=== PATIENT | female | born 1950 | race Caucasian/White ===

== ENCOUNTER 2022-06-20 09:25 | Outpatient (CLI) | payer MEDICARE, BC, SELFPAY ==
--- NOTE | 2022-06-20 09:47 | ECG_ITS ---
Measurements Intervals [place] Rate: 61 P: 53 VA: 159 QRS: -42 QRSD: 128 T: -39 QT: 461 QTc: 465 Interpretive Statements SINUS RHYTHM LEFT AXIS DEVIATION POSSIBLE LEFT VENTRICULAR HYPERTROPHY LATERAL ST ABNORMALITY, CONSIDER ISCHEMIA CANNOT RULE OUT HIGH LATERAL MYOCARDIAL INFARCTION , PROBABLY OLD ABNORMAL ECG NO PREVIOUS ECG AVAILABLE FOR COMPARISON Electronically Signed On 06-20-2022 15:17:22 CDT by Christopher Esqueda M.D.
== END 2022-06-20 09:26 | disposition home or self-care (01) ==
PROVIDERS: PCP Internal Medicine; Visit Provider Neurological Surgery
DX: Z01.818 Encounter for other preprocedural examination (principal); R94.31 Abnormal electrocardiogram [ECG] [EKG]
CPT/HCPCS: 93005

== ENCOUNTER 2022-06-25 09:16 | Outpatient (CLI) | payer MEDICARE, BC, SELFPAY ==
[2022-06-25 10:19] LABS: Anion Gap 9 mmol/L (8-16); Blood Urea Nitrogen 12 mg/dL (7-17); Calcium 9.1 mg/dL (8.4-10.2); Carbon Dioxide 31 mmol/L (22-30); Chloride 100 mmol/L (98-107); Estimated Glomerular Filt Rate > 60; Glucose 105 mg/dL (65-110); Potassium 3.8 mmol/L (3.4-5.0); Sodium 140 mmol/L (137-145)
== END 2022-06-25 09:17 | disposition home or self-care (01) ==
LOC: ANHSURGERY 09:24
PROVIDERS: Anesthesiology; PCP Internal Medicine; Visit Provider Neurological Surgery
DX: G89.29 Other chronic pain (principal); M79.606 Pain in leg, unspecified; I10 Essential (primary) hypertension
CPT/HCPCS: 36415; 80048; 86850; 86900; 86901

== ENCOUNTER 2022-06-28 01:00 | Day surgery (SDC) | payer MEDICARE, BC, SELFPAY ==
--- NOTE | 2022-06-20 16:07 | PC.NURSE ---
Report to the Outpatient Waiting Room, entrance under the green pavilion located off [facility], at time _0900 on date _06/28/22 . OR Time: _1100 . Time changes happen often and if your time is changed the preop area will call you the afternoon before. - You and your visitor will be asked to self-screen and do not enter if you have any COVID symptoms. - Only one visitor and NO children visitors are allowed at this time. - The patient visitor is requested to leave or wait in car when not with patient due to restrictions. - A mask is required within the hospital. Patients may have clear liquids (water, carbonated beverages, clear teas, apple juice) until 3 hours prior to surgery with a maximum of 20 ounces. - No food from midnight until time of surgery - Infants may have breast milk until 4 hours before surgery, infant formula 6 hours prior to surgery. - Children will be allowed to drink immediately following surgery. If applicable, please bring a bottle or sippy cup to assist with drinking. Juice, water, soda, and popsicles are readily available. For infants on formula, please bring formula the day of surgery. Pacifiers are allowed. Take the following medications with a SIP of water the morning of surgery: GABAPENTIN,HYDRALAZINE,LEVOTHYROXINE,HYDRALAZINE,,METOPROLOL, Medications to discontinue per physician __RICARDO PT STATES WILL CALL DR SOLER. STATES DR SOLER JUST PRESCRIBED ELIQUIS TODAY Date to take last dose Please no make-up, nail danish, hairspray, perfume, deodorant, or body powder the day of surgery. No jewelry (including any body piercings) or valuables the day of surgery, leave them at home. Please take a shower or bath the night before, or the morning of, surgery with an antibacterial soap. Wear comfortable, loose fitting clothing. Children are encouraged to wear pajamas. - Jewelry must be removed prior to entering the operating room. Rings and piercings that are not removed may be cut off. - The hospital will not accept responsibility for valuables. - Please leave all valuables, including medications, at home the day of surgery. If you are going home after surgery, a licensed local company refrigerated truck driver must drive you home. - NO public transportation without another adult. - We recommend that an adult stay with you for 24 hours following discharge. - We also recommend that you do not drive, make important decision, drink alcoholic beverages, or take any drugs that were not prescribed by your health care provider for at least 24 hours after your discharge time. For Pediatric surgeries, we recommend two adults accompany the child home (only one inside the building at this time). Follow any additional instructions given to you from your surgeon. If you or anyone in your household have experienced Covid symptoms in the past week, please notify your surgeon or the nurse liaison at the phone number below for possible testing. Telephone instructions given to __PATIENT and asked if any additional questions and then verbalized understanding. Patient advised to call surgeon office or pre surgery nurse liaison [phone] if any additional questions.
[2022-06-20 16:19] VITALS: BMI 30.4
[2022-06-28] VITALS (12 sets, daily range): BP systolic 115–172; BP diastolic 57–95; PULSE 43–54; RESP 14–20; TEMP 36.4; O2SAT 94–99
--- NOTE | ~2022-06-28 | XR_ITS ---
EXAMINATION: XR fluoroscopy no charge DATE: 06/28/2022 12:55 INDICATION: Chronic back and leg pain. TECHNIQUE: A single intraoperative fluoroscopic view of the thoracolumbar spine was obtained. I was n ot present. Fluoroscopy exposure time was 2 seconds. COMPARISON: None. FINDINGS: There are changes of posterior fusion procedure in the spine. Electrodes overlie the spine. IMPRESSION: 1. Surgical changes of the spine. Reviewed, dictated and finalized at location A.
[2022-06-28] MEDS: LACTATED RINGERS 1,000 ML 30 ML IV CONT ×2 (09:10→14:27)
--- NOTE | 2022-06-28 10:17 | WPDANESEPPF ---
Anes - Initial Pre Proc Eval Procedure: Operation Date: 06/28/22 11:00 Proposed Procedures p Removal of Dorsal Column Stimulator Lead and Generator - Job Carl MD Date/Time: 06/28/22 10:17 Surgeon: Job Carl MD Pre Op Diagnosis: chronic back & leg pain Patient Data Age: 72 Gender: F Height: 1.55 m Weight: 72.7 kg Last Vital Signs Temp 36.4 C L 06/28/22 08:56 Pulse 50 L 06/28/22 08:56 Resp 18 06/28/22 08:56 BP 166/84 H 06/28/22 08:56 Pulse Ox 97 06/28/22 08:56 O2 Del Method Room Air 06/28/22 08:56 Allergies Allergy/AdvReac Type Severity Reaction Status Date / Time milk Allergy Mild Anaphylaxis Verified 06/28/22 09:31 Sulfa (Sulfonamide Allergy Mild Rash Verified 06/28/22 09:31 Antibiotics) eggs Allergy Mild Rash Uncoded 06/28/22 09:31 Home Medications Medication Instructions Recorded Confirmed Type acetaminophen 500 mg tablet 500 mg PO Q6H PRN Pain 06/11/22 06/28/22 History (Tylenol Extra Strength) albuterol 90 mcg/actuation aerosol 1 mcg inhalation PRN PRN Shortness 06/11/22 06/28/22 History inhaler Of Breath amitriptyline 50 mg tablet 50 mg PO QHS 06/11/22 06/28/22 History atorvastatin 20 mg tablet 20 mg PO DAILY 06/11/22 06/28/22 History citalopram 20 mg tablet 20 mg PO DAILY 06/11/22 06/28/22 History clobetasol 0.05 % topical cream 1 applic topical DAILY 06/11/22 06/28/22 History diclofenac sodium 1 % topical gel 2 g topical QID 06/11/22 06/28/22 History furosemide 20 mg tablet 10 mg PO QAM 06/11/22 06/28/22 History gabapentin 800 mg tablet 800 mg PO DAILY 06/11/22 06/28/22 History hydralazine 25 mg tablet 25 mg PO TID 06/11/22 06/28/22 History levothyroxine 50 mcg capsule 50 mcg PO DAILY 06/11/22 06/28/22 History nabumetone 500 mg tablet 500 mg PO BID 06/11/22 06/28/22 History nitroglycerin 0.4 mg sublingual 0.4 mg sublingual Q5M PRN Pain 06/11/22 06/28/22 History tablet pantoprazole 20 mg tablet,delayed 20 mg PO QAM 06/11/22 06/28/22 History release sennosides 8.6 mg tablet 8.6 mg PO DAILY 06/11/22 06/28/22 History tapentadol 50 mg tablet (Nucynta) 50 mg PO BID PRN Pain 06/11/22 06/28/22 History tramadol 50 mg tablet 50 mg PO Q6H PRN Pain 06/11/22 06/28/22 History apixaban 5 mg tablet (Eliquis) 5 mg PO BID 06/20/22 06/28/22 History metoprolol tartrate 25 mg tablet 25 mg PO BID 06/20/22 06/28/22 History Patient hx anesthesia problems: none Family hx anesthesia problems: none Results Review: All pre-operative results and documents have been reviewed as part of the pre-operative evaluation. [facility] Past Medical History Medical History Afib Depression GERD (gastroesophageal reflux disease) Heart disease High cholesterol Spinal cord stimulator status Thyroid disease Surgical History Surgical History H/O cardiac radiofrequency ablation H/O neck surgery H/O spinal fusion H/O Spinal surgery History of carpal tunnel surgery Family History Family History Other Asthma Diabetes mellitus Heart disease Hypertension Social History Social History Smoking packs per day: 0.5 Smoking cigarettes per day: 10.0 Years smoked: 40 Smoking pack-years: 20.00 Smoking status: Current every day smoker Tobacco type: cigarettes Additional smoking assessment comments: STATES HAS SMOKED FOR 40 YRS ON AND OFF Alcohol intake: current Substance use: never Substance use type: does not use Living arrangements: alone Spiritual care concerns: No Anes - Eval Final PreProcedure Day of Procedure 06/28/22 10:17 Patient weight: obese Heart: regular rate and rhythm Lungs: decreased breath sounds Airway: Mallampati scale class III Neurological: alert and oriented Last oral intake: >/= 8 hours ASA clas
--- NOTE | 2022-06-28 11:11 | PM.IMHP ---
H&P: HPI History of Present Illness Date/Time: 06/28/22 11:11 Chief Complaint: Back and leg pain Narrative: Ms. Dunbar presents today for removal of her dorsal column stimulator lead and generator. It is no longer functioning for her needs to be removed. She is not having new bowel or bladder other constitutional problems. She does not have specific muscle group weakness or dermatomal numbness. Review of Systems Review of Systems: Patient denies shortness of breath, cough, fever, chills, nausea, vomiting, weight loss, weight gain, chest pain, dysuria. She has back and leg pain as above. Her review of systems is otherwise negative on 12 systems except as PMFSH Past Medical History Medical History Afib Depression GERD (gastroesophageal reflux disease) Heart disease High cholesterol Spinal cord stimulator status Thyroid disease Surgical History Surgical History H/O cardiac radiofrequency ablation H/O neck surgery H/O spinal fusion H/O Spinal surgery History of carpal tunnel surgery Family History Family History Other Asthma Diabetes mellitus Heart disease Hypertension Social History Social History Smoking packs per day: 0.5 Smoking cigarettes per day: 10.0 Years smoked: 40 Smoking pack-years: 20.00 Smoking status: Current every day smoker Tobacco type: cigarettes Additional smoking assessment comments: STATES HAS SMOKED FOR 40 YRS ON AND OFF Alcohol intake: current Substance use: never Substance use type: does not use Living arrangements: alone Spiritual care concerns: No Meds Home Medications and Allergies Home Medications Medication Instructions Recorded Confirmed Type acetaminophen 500 mg tablet 500 mg PO Q6H PRN Pain 06/11/22 06/28/22 History (Tylenol Extra Strength) albuterol 90 mcg/actuation aerosol 1 mcg inhalation PRN PRN Shortness 06/11/22 06/28/22 History inhaler Of Breath amitriptyline 50 mg tablet 50 mg PO QHS 06/11/22 06/28/22 History atorvastatin 20 mg tablet 20 mg PO DAILY 06/11/22 06/28/22 History citalopram 20 mg tablet 20 mg PO DAILY 06/11/22 06/28/22 History clobetasol 0.05 % topical cream 1 applic topical DAILY 06/11/22 06/28/22 History diclofenac sodium 1 % topical gel 2 g topical QID 06/11/22 06/28/22 History furosemide 20 mg tablet 10 mg PO QAM 06/11/22 06/28/22 History gabapentin 800 mg tablet 800 mg PO DAILY 06/11/22 06/28/22 History hydralazine 25 mg tablet 25 mg PO TID 06/11/22 06/28/22 History levothyroxine 50 mcg capsule 50 mcg PO DAILY 06/11/22 06/28/22 History nabumetone 500 mg tablet 500 mg PO BID 06/11/22 06/28/22 History nitroglycerin 0.4 mg sublingual 0.4 mg sublingual Q5M PRN Pain 06/11/22 06/28/22 History tablet pantoprazole 20 mg tablet,delayed 20 mg PO QAM 06/11/22 06/28/22 History release sennosides 8.6 mg tablet 8.6 mg PO DAILY 06/11/22 06/28/22 History tapentadol 50 mg tablet (Nucynta) 50 mg PO BID PRN Pain 06/11/22 06/28/22 History tramadol 50 mg tablet 50 mg PO Q6H PRN Pain 06/11/22 06/28/22 History apixaban 5 mg tablet (Eliquis) 5 mg PO BID 06/20/22 06/28/22 History metoprolol tartrate 25 mg tablet 25 mg PO BID 06/20/22 06/28/22 History Allergies Allergy/AdvReac Type Severity Reaction Status Date / Time milk Allergy Mild Anaphylaxis Verified 06/28/22 09:31 Sulfa (Sulfonamide Allergy Mild Rash Verified 06/28/22 09:31 Antibiotics) eggs Allergy Mild Rash Uncoded 06/28/22 09:31 Vital Signs Vital Signs - 24 hr 06/28/22 08:56 Temperature 97.5 F L Pulse Rate 50 L Respiratory Rate 18 Blood Pressure 166/84 H Pulse Oximetry 97 Oxygen Delivery Room Air Exam Neuro: Other: Patient is a normal appearing, normally developed female supine on the hospital bed in no acute dis
--- NOTE | 2022-06-28 11:14 | WPDHPUPDATE1 ---
History and Physical Update Update Date/Time: 06/28/22 11:14 History and Physical has been reviewed, including an updated exam of the patient. There are NO changes in the patient's condition. Risks, benefits, and alternatives have been discussed and questions answered. Patient agrees to proceed with procedure.
[2022-06-28] MEDS: ceFAZolin 2 GM/D5W 50 ML 2 GM/50 ML BAG IVPB (11:48)
[2022-06-28] MEDS: KETOROLAC 30 MG/ML VIAL (*BKC) IV PUSH (12:18)
[2022-06-28] MEDS: BUPIVACAINE/EPINEPHRINE 0.25% 50 ML VIAL INFILTRATE (12:29)
--- NOTE | 2022-06-28 12:31 | P.OP_ITS ---
Procedure Note - Detailed Date of Procedure 06/28/22 Pre-op Diagnosis chronic back & leg pain Post-op Diagnosis Same Procedure Performed Removal of dorsal column stimulator lead and generator Surgeon Job Carl MD Guitar [employer] Ms. Dunbar is a 72-year-old female who requires removal of her dorsal column stimulator and presents for that. Description of Procedure Patient was brought to the operating room in the supine position, was sedated, intubated and placed under general anesthesia in routine fashion. She was then turned into the prone position on a on a Fran frame. The area of operation on her back was examined, marked for incision, prepped and draped in routine sterile fashion. Incision was marked longitudinally in the thoracic spine over the previous incision and in the left flank transversely over the previous incision. These areas were injected with 0.5% lidocaine with [id number] epinephrine. Intravenous antibiotics given prior to incision. Incisions were made with a 10 blade scalpel. Bovie cautery was used to come through the soft tissue and discovered and removed the generator. Wires were freed from the soft tissue and then cut. At the thoracic incision the wires were discovered using Bovie cautery and pulled through. These were then followed to the epidural space using Bovie cautery. A subperiosteal dissection of the muscle soft tissue away from the spinous process and lamina above was performed with a subperiosteal elevator and Bovie cautery. The wires were then followed to the epidural space until the shoulders of the lead were discovered. Was then removed from the epidural space. The wounds were then copiously irrigated with bacitracin irrigation all bleeding stopped with bipolar and Bovie cautery. The wound was then closed in layered fashion with 2-0 Vicryl interrupted sutures in the thoracic fascia and Brisa's layer. Both incisions were closed with 3-0 Vicryl buried interrupted sutures in the dermis and a running 4-0 Monocryl subcuticular stitch in the skin were dressed with Dermabond and Telfa and Tegaderm dressing. The patient was allowed to wake up in the operating room and was taken to the recovery room in stable condition. There were no immediate complications of this operation. All counts were reported correct in the case. Blood loss was 5 cc. The patient was neurologically at her baseline postoperatively. Estimated Blood Loss 5 IV Fluids 1,000 Complications None Condition Stable Disposition PACU
--- NOTE | 2022-06-28 12:45 | ECG_ITS ---
Measurements Intervals [place] Rate: 53 P: 44 MO: 166 QRS: -39 QRSD: 146 T: 0 QT: 518 QTc: 488 Interpretive Statements SINUS BRADYCARDIA MARKED LEFT AXIS DEVIATION [QRS AXIS < -30] POSSIBLE LATERAL MYOCARDIAL INFARCTION , OF INDETERMINATE AGE [30 ms Q WAVE IN I/aVL/V5/V6] COMPARED TO ECG 06/20/2022 10:11:14 SINUS BRADYCARDIA NOW PRESENT Electronically Signed On 06-28-2022 15:50:38 CDT by Evan Hyman M.D.
--- NOTE | 2022-06-28 13:22 | SUR.PHASEI ---
1322 - dr. bosch at bedside, dr. bosch speaking with Mary Ozuna via phone in regards to pt's ekg issues in OR
--- NOTE | 2022-06-28 14:13 | WPDANESPN ---
Anes - Prog Note Post-Op Date/Time: 06/28/22 14:13 Cardiovascular status: normal Respiratory status: normal Airway patency: baseline Mental status: baseline Post-Op hydration status: normal Vital Signs: Last Vital Signs Temp 36.4 C 06/28/22 12:58 Pulse 43 L 06/28/22 14:10 Resp 14 06/28/22 14:10 BP 120/90 06/28/22 14:10 Pulse Ox 97 06/28/22 14:10 O2 Del Method Nasal Cannula 06/28/22 14:10 O2 Flow Rate 2 06/28/22 14:10 Pain Score (VAS): 0 I/O: Intake & Output 06/27/22 06/28/22 06/28/22 23:59 07:59 15:59 Intake Total 1000 Balance 1000 Patient Feedback: Patient satisfied with anesthetic care. Other Findings: Pt had prolonged bradycardia intra-op with HR in the 30s. Her bradycardia was refractory to atropine and ephedrine. A tracing was unable to be obtained. Visual inspection of the EKG intra-op did not reveal P waves. Pts HR responded appropriately to small doses of epinephrine to HR in the 50s with Pwaves identified. Post op EKG showed SB. VS have been stable as above. Pt says that she was on a monitor until this morning and has had these episodes in the past. She sees Dr. Mistry in [place]. I attempted to contact Dr. Mistry but his multimedia assistant stated that he was very busy in clinic and requested that I send a note and the EKG. A copy of this note will be faxed with the EKG. Pt has been instructed to place the radiographer cardiac catheterization back on and follow-up with Dr. Mistry. Dr. Carl informed of the plan.
[2022-06-28] MEDS: fentaNYL CITRATE INJ (*CRX) 100 MCG/2 ML VIAL 25 MCG IV PUSH ×2 (14:26→14:34)
== END 2022-06-28 16:02 | disposition home or self-care (01) ==
PROVIDERS: PCP Internal Medicine; Visit Provider Neurological Surgery
PROC: (CPT 63662; principal; 2022-06-28 11:00)
DX: Z45.42 Encounter for adjustment and management of neurostimulator (principal); M54.9 Dorsalgia, unspecified; M79.606 Pain in leg, unspecified; G89.29 Other chronic pain; I48.91 Unspecified atrial fibrillation; I51.9 Heart disease, unspecified; E78.00 Pure hypercholesterolemia, unspecified; E07.9 Disorder of thyroid, unspecified; K21.9 Gastro-esophageal reflux disease without esophagitis; F32.A Depression, unspecified; Z98.1 Arthrodesis status; F17.210 Nicotine dependence, cigarettes, uncomplicated; E66.9 Obesity, unspecified; Z68.30 Body mass index [BMI] 30.0-30.9, adult; Z79.51 Long term (current) use of inhaled steroids; Z79.01 Long term (current) use of anticoagulants
CPT/HCPCS: 63662; 63688; 93005; 99199; J0690; J1100; J1885; J2250; J2405; J2704; J2710; J3010; J7120